=== PATIENT | female | born 1965 | race American Indian/Alaskan Native ===

== ENCOUNTER 2018-06-10 12:55 | Emergency (ER) | payer BC ==
[2018-06-10 13:00] VITALS: BP 127/80; PULSE 73; TEMP 97.9; O2SAT 100
--- NOTE | 2018-06-10 13:35 | C.PDOC ---
History Of Present Illness 52 y/o female pt presents to the ER c/o weakness and dizziness after forcing on the toilet. Pt has a hard bowel movement with hx of similar. Pt reports she is a state [employer] of [employer] and after going to the bathroom, she felt shaky. Pt denies fall, LOC and incontinence. Time Seen by Provider: 06/10/18 13:20 Chief Complaint (Nursing): Dizziness/Lightheaded History Per: Patient History/Exam Limitations: no limitations Onset/Duration Of Symptoms: Hrs Current Symptoms Are (Timing): Still Present Past Medical History Reviewed: Historical Data, Nursing Documentation, Vital Signs Vital Signs: Last Vital Signs Temp 97.9 F 06/10/18 12:58 Pulse 73 06/10/18 12:58 Resp 18 06/10/18 12:58 BP 127/80 06/10/18 12:58 Pulse Ox 100 06/10/18 12:58 Surgical History: Cholecystectomy Family History: States: No Known Family Hx - Social History Hx Tobacco Use: No Hx Alcohol Use: No Hx Substance Use: No - Immunization History Hx Tetanus Toxoid Vaccination: No Hx Influenza Vaccination: No Hx Pneumococcal Vaccination: No Review Of Systems Except As Marked, All Systems Reviewed And Found Negative. Constitutional: Positive for: Weakness. Negative for: Other (fall) Gastrointestinal: Positive for: Other (hard bowel movement ) Genitourinary: Negative for: Incontinence Neurological: Positive for: Dizziness. Negative for: Other (LOC) Physical Exam - Physical Exam Appears: Non-toxic, No Acute Distress, Other (malaise) Skin: Warm, Dry Head: Atraumatic, Normacephalic Eye(s): bilateral: Normal Inspection, PERRL, EOMI Ear(s): Bilateral: Normal Nose: Normal Oral Mucosa: Moist Throat: Normal Neck: Normal ROM, Supple Chest: Symmetrical Cardiovascular: Rhythm Regular Respiratory: Normal Breath Sounds, No Rales, No Rhonchi, No Wheezing Gastrointestinal/Abdominal: Soft, No Tenderness Neurological/Psych: Oriented x3, Normal Speech, Normal Cognition ED Course And Treatment O2 Sat by Pulse Oximetry: 100 (RA) Pulse Ox Interpretation: Normal Medical Decision Making Medical Decision Making: Plans: -- EKG -- ibuprofen vasovagal syndrome normal eval and ekg cautioned about straining at the bowl and diet changes. defers w/u with informed consent Disposition Doctor Will See Patient In The: Office Counseled Patient/Family Regarding: Studies Performed, Diagnosis - Disposition Referrals: Alcoholics Anonymous [Outside] [facility] [Outside] [facility] [Outside] [facility] [Outside] Disposition: HOME/ ROUTINE Disposition Time: 13:34 Condition: GOOD Additional Instructions: void straining at the bowel rise slowly from sitting/standing diet changes to avoid constipation increased cardiovascular exercise. Instructions: Vasovagal Response, Syncope (Fainting) (DC) Forms: [facility] (Maldivian) - Clinical Impression Clinical Impression: Near syncope - Scribe Statement The provider has reviewed the documentation as recorded by the Scribe Lew Do Provider Attestation: All medical record entries made by the Scribe were at my direction and personally dictated by me. I have reviewed the chart and agree that the record accurately reflects my personal performance of the history, physical exam, medical decision making, and the department course for this patient. I have also personally directed, reviewed, and agree with the discharge instructions and disposition.
[2018-06-10 13:59] VITALS: RESP 20
== END 2018-06-10 13:58 | disposition home or self-care (01) ==
LOC: C.ER 12:55
DX: R55 Syncope and collapse (principal)